=== PATIENT | female | born 1950 | race Caucasian/White ===

== ENCOUNTER 2017-07-04 11:39 | Inpatient (IN) | payer MEDICARE ==
[~2017-07-04] VITALS: Ht 157.5 cm; Wt 87.7 kg
--- NOTE | ~2017-07-04 | DS ---
[place], [place] DISCHARGE SUMMARY [id number] UN[facility] #: [id number] ROOM: 522 DOCTOR: KIA TURCIOS MD BIRTHDATE: [birth year] DOS: 07/07/2017 DISCHARGE DIAGNOSES: 1. Acute over chronic systolic type congestive heart failure with left ventricular ejection fraction of 25-30%. 2. Benign essential hypertension. 3. Chronic progressive anemia, needs to be followed as an outpatient. Hemoglobin was stable, may require blood transfusion after hemoglobin drops below 7. 4. Chronic kidney disease stage 3B. 5. Hyperkalemia associated with chronic kidney disease, resolved with diuresis. 6. Benign essential hypertension. HOSPITAL COURSE: The patient presented with increased shortness of breath and congestive heart failure along with hypoxemia. The patient was treated with diuresis and her breathing has improved. Acute exacerbation of COPD, treated with bronchodilators, oxygen, corticosteroids and her breathing has significantly improved. The patient has chronic underlying wheezing, which is going to stay and any time she gets a lung infection, she is prone to become hypoxemic and end up at the hospital again. The patient needs code status reevaluation and palliative care consult. Benign essential hypertension, with controlled blood pressures. Advanced disability and failure to thrive. Anemia of chronic disease. Old age, multiple medical problems, advanced disability. Moderate protein calorie malnutrition with albumin level of 2.6. Suboptimal prognosis, get palliative care consult with community hospice to follow the patient. BUN and creatinine prior to discharge of 55 and 1.8. Potassium level normal at 4.7 now. Hyperkalemia has resolved. Blood cultures were negative. DISCHARGE MANAGEMENT: Can give Diamox 250 mg 3 times a day, Brintellix 10 mg daily, Tradjenta 5 mg daily, lisinopril 2.5 mg daily, furosemide 60 mg daily, Colace 200 mg daily, Coreg 3.125 mg b.i.d., DuoNeb every 6 hours aerosol treatments, trazodone 50 mg at bedtime p.r.n. for sleep, Protonix 40 mg b.i.d. for a month and then once a day, magnesium oxide 400 mg b.i.d., with DuoNeb give Pulmicort 0.5 mg b.i.d. aerosol treatments, Tylenol 1000 mg every 8 hours as needed for pain and fever. [place], [place] DISCHARGE SUMMARY NAME: TAMMY JOHN UNIT #: [id number] ROOM: 522 DOCTOR: KIA TURCIOS MD BIRTHDATE: [birth year] KIA TURCIOS MD CM:DISCHARG [phone] KIA TURCIOS MD 07/07/17 1243 interface
--- NOTE | ~2017-07-04 | PR ---
[place], [place] PROGRESS NOTE NAME: TAMMY JOHN UNIT #: [id number] ROOM: 522 DOCTOR: KIA TURCIOS MD BIRTHDATE: [birth year] DOS: 07/06/2017 SUBJECTIVE: The patient continues to improve and her breathing is improving. OBJECTIVE: VITAL SIGNS: Blood pressure 133/70, heart rate 92 beats per minute, breathing 18 times per minute, temperature 98.5 degrees Fahrenheit. GENERAL APPEARANCE: The patient is alert and oriented x 3, in no visible distress, except for generalized weakness. HEENT AND NECK: Exam within normal limits. CARDIOVASCULAR SYSTEM: Heart rate is regular in rate and rhythm. S1 and S2 normally audible. LUNGS: Clear to auscultation. ABDOMEN: Soft, nontender. No obvious organomegaly. Bowel sounds are present. EXTREMITIES: Without significant cyanosis or edema. IMPRESSION: 1. Advanced severe failure to thrive with chronic kidney disease, moderate protein calorie malnutrition, anemia of chronic disease and a resident at [facility], hopefully will be discharged back after treatment tomorrow. 2. Acute over chronic systolic type congestive heart failure, improving with diuresis. 3. Serum electrolytes, BUN and creatinine being monitored. The patient has 55 and 1.8 BUN and creatinine, which are staying stable. 4. Benign essential hypertension, with controlled blood pressures. 5. Stage 4 chronic kidney disease. BUN and creatinine are being monitored. 6. Hyperkalemia, resolved with diuresis. KIA TURCIOS MD CM:PNTRANS [phone] KIA TURCIOS MD 07/06/172056 interface
--- NOTE | ~2017-07-04 | WRIGHTHP ---
[place], [place] PATIENT HISTORY AND PHYSICAL EXAM NAME: [id number] UNIT #: [id number] ROOM: 522 DOCTOR: KIA TURCIOS MD BIRTHDATE: [birth year] DOS: 07/04/2017 HISTORY OF PRESENT ILLNESS: The patient is a 67-year-old female with a past medical history of: 1. Systolic type CHF with 20-25% left ventricular ejection fraction. 2. History of CVA with left hemiparesis and disability. The patient resides at assisted. 3. Acute over chronic kidney disease. 4. COPD. The patient presented to the Emergency Department, sent over from [facility] for increased shortness of breath. The patient was found to be hypoxemic and short of breath and was recommended for admission and further management by Dr. Guerin. After admission, the patient is feeling much better. No GI or urinary symptoms. No more shortness of breath or wheezing. REVIEW OF SYSTEMS: LUNGS:. The patient had some increasing shortness of breath and hypoxemia at assisted. CARDIOVASCULAR: No chest pain. No palpitations. GASTROINTESTINAL: No nausea, vomiting, diarrhea or constipation. FAMILY HISTORY: Noncontributory. SOCIAL HISTORY: Denies smoking cigarettes, alcohol and drug abuse. HOME MEDICATION: DICTATION ENDS HERE KIA TURCIOS MD CM:HISPHYS:PATIENT HISTORY AND PHYSICAL EXAMINATION [phone] KIA TURCIOS MD 07/04/17 1824 interface
--- NOTE | ~2017-07-04 | WRIGHTHP ---
[place], [place] PATIENT HISTORY AND PHYSICAL EXAM [id number] UNIT #: [id number] ROOM: 522 DOCTOR: KIA TURCIOS MD BIRTHDATE: [birth year] DOS: 07/04/2017 HISTORY OF PRESENT ILLNESS: The patient is a 67-year-old female with a past medical history of: 1. COPD. 2. Advanced disability and adult failure to thrive, with suboptimal long-term prognosis. 3. Chronic systolic type CHF, 20-25% left ventricular ejection fraction. 4. History of CVA, with left hemiparesis and disability. 5. Chronic kidney disease stage 4. The patient was sent over from [facility] to the Emergency Department for increased shortness of breath and hypoxemia and she was found to be in acute congestive heart failure on chest x-ray and recommended for admission and further management. After admission, the patient is starting to feel better. No chest pain. No GI or urinary symptoms. REVIEW OF SYSTEMS: LUNGS: Increasing shortness of breath. No wheezing. GASTROINTESTINAL: No nausea, vomiting, diarrhea or constipation. CARDIOVASCULAR: No chest pains or palpitations. FAMILY HISTORY: Noncontributory. SOCIAL HISTORY: Denies smoking cigarettes, alcohol and drug abuse. MEDICATIONS: The patient takes Trintellix, Onglyza, lisinopril, furosemide, Colace, Coreg, DuoNeb, Protonix. ALLERGIES: No known drug allergies. PHYSICAL EXAMINATION: GENERAL: Alert, mostly oriented, very hard of hearing, poor historian, generalized weakness. HEENT AND NECK: Extraocular movements are intact. Sclerae are anicteric. Oral mucosa is moist and clean. No obvious facial weakness. Neck is supple without any lymphadenopathy. No thyromegaly. No JVD. No carotid arterial bruits. LUNGS: Clear to auscultation. No wheezing. No rhonchi. CARDIOVASCULAR SYSTEM: Heart rate is regular in rate and rhythm. S1 and S2 normally audible. No significant murmur or any other abnormal cardiac sounds. ABDOMEN: Soft, nontender. No obvious organomegaly. Bowel sounds are present. No obvious herniation. EXTREMITIES: Without significant cyanosis or edema. Warm to touch. CENTRAL NERVOUS SYSTEM: Alert and oriented x 3. Cranial nerves II-XII are intact. Speech is normal. The patient is able to move all extremities. Normal muscle strength. Deep tendon reflexes are equal on both sides. Plantars were downgoing. LABORATORY DATA: BUN and creatinine 52 and 1.2, potassium level of 5.4, magnesium 3.5. ProBNP elevated to 1200. Hemoglobin 7.3, chronically low white [place], [place] PATIENT HISTORY AND PHYSICAL EXAM NAME: TAMMY JOHN UNIT #: [id number] ROOM: 522 DOCTOR: KIA TURCIOS MD BIRTHDATE: [birth year] cell count of 4100. IMPRESSION: 1. The patient with severe failure to thrive, chronic kidney disease, moderate protein calorie malnutrition, chronic anemia, resident at [facility], maintains a full code status, qualifies for palliative care. 2. Acute over chronic systolic type congestive heart failure with hypoxemia. The patient's pulse ox has improved to 93-97% with low dose oxygen of 2-3 liters. I will continue to follow closely, review her chest x-ray, continue her home medications including Lasix and then adjust treatment as necessary. The patient requires very gentle treatment and not aggressive treatment at the hospital. I will recommend mainly treatment at [facility] and palliative nursing for her. 3. Benign essential hypertension, with controlled blood pressures. Blood pressure will be monitored and treated and she will be continued on lisinopril, Coreg as she was taking at [facility]. The patient's lungs are clear to auscultation on physical exam and she does not appear to be in any distress. 4. Chronic progressive anemia. I will check stool for Hemoccult blood and treat as necessary, follow her blood counts. Hemoglobin was low at 7.3. In the past, the patient apparently required blood transfusions. 5. Chronic kidney disease stage 4. Kidney function and serum electrolytes to be monitored. 6. Hyperkalemia. Potassium level of 5.4. I will repeat potassium level again tomorrow. KIA TURCIOS MD CM:HISPHYS:PATIENT HISTORY AND PHYSICAL EXAMINATION [phone] KIA TURCIOS MD 07/04/171848 interface
--- NOTE | ~2017-07-04 | PR ---
[place], [place] PROGRESS NOTE NAME: [facility] [id number] UNIT #: [id number] ROOM: 522 DOCTOR: KIA TURCIOS MD BIRTHDATE: [birth year] DOS: 07/05/2017 SUBJECTIVE: The patient with adult failure to thrive, chronic kidney disease, moderate protein calorie malnutrition, chronic anemia, with stable H and H. Her Long-term prognosis is guarded. Acute over chronic systolic type congestive heart failure is improving with diuresis. Benign essential hypertension. Blood pressure is being monitored, treated and controlled. Chronic progressive anemia, which is recurrent. Hemoglobin is stable at this time. If hemoglobin drops below 7, she will require blood transfusion. Chronic kidney disease stage 4. BUN and creatinine improving with diuresis. Hyperkalemia, resolved with diuresis. KIA TURCIOS MD CM:PNTRANS [phone] KIA TURCIOS MD 07/05/172206 interface
[~2017-07-04 11:39] MED LIST: ACCUNEB 0.0.63 MG/3 INH; ACETAMINOPHEN RC; ACETAMINOPHEN325 M2; ACETAMINOPHEN325 M2 PO; ACETAZOLAMIDE250 MG PO; ALBUTEROL SULF0.5 M1 IH; ALBUTEROL0.09 MG/A1 INH; ALDACTONE25 M1 PO; AMLODIPINE BESY10 MG PO; AMLODIPINE10 MG PO; ANTI-TUSS100 MG/5 M PO; ASMANEX220 MCG INH; ATOXIMETIN-B1 CAP PO; ATROVENT I0.5 MG/2.1 INH; AUGMENTIN 875-875 MG PO; AZASAN50 MG; B-121000 MCG PO; B121000 MCG/1 IM; BACTRIM DS 8001 TA1 PO; BACTROBAN2% TP; BENTYL20 MG PO; BRIN20TA PO; CALCI-MIX500 MG PO; CALCIUM 600600 M2 PO; CALMOSEPTINE O3.5 GM TP; CEFUROXIME AXE250 MG PO; CELEXA10 MG; CELEXA20 MG PO; CENTRUM1 TA1 PO; CIPRO500 MG PO; COREG3.125 MG PO; COUMADIN2.5 M1 PO; DIAMOX SEQUELS500 MG PO; DIFLUCAN100 MG PO; DOC-Q-LACE100 MG PO; DUONEB 3 MG/3 ML3 M1; DUONEB 3 MG/3 ML3 M1 INH; DUONEB 3 MG/3 ML3 M1 NEB; DUONEB 3ML 3 MG/3 ML INH; DURAGESIC 25 M25 MCG; DURAGESIC 50 M50 MCG INTRADERM; DURAGESIC25 MCG/HR TD; FUROSEMIDE80 MG PO; GABAPENTIN100 MG PO; GABAPENTIN300 MG PO; HEPARIN5000 UNIT/ SC; HUMALOG100 UNIT/2 SQ; HYDROCODONE BIT1 T11 PO; HYDROCODONE BIT1 T12 PO; HYDROCODONE/APA1 T15 PO; IMURAN50 MG PO; JANTOVEN4 MG PO; K-DUR 1010 MEQ PO; KLOR-CON 1010 MEQ PO; KLOR-CON M2020 MEQ PO; LANTUS100 U/ML SC; LASIX40 MG PO; LASIX80 MG; LASIX80 MG PO; LEVEMIR10 ML SC; LEVOFLOXACIN500 MG PO; LIQUACEL 30 ML30 M1 PO; LISINOPRIL2.5 MG PO; LISINOPRIL40 MG PO; LOPRESSOR50 MG PO; LOVENOX30 MG/0.3 SC; Lasix80 MG PO; MACRODANTIN100 MG PO; MAG OX PO; MAGOX 400400 MG PO; MEDROL DOSEPAK4 MG PO; MEGACE40 MG/ML PO; MERREM IV1 GM IV; METFORMIN500 MG PO; MILK OF MA400 MG/5 M PO; Metolazone5 MG PO; NITROFURANTOIN100 M9; NOVOLIN 70/30 PE3 ML; NOVOLIN R100 U/ML; NOVOLIN R100 U/ML SC; NOVOLOG10 ML IV; NYSTATIN 1 ML1 ML T; NYSTATIN CREAM15 GM PO; NYSTATIN POWDER T; OMEPRAZOLE DR20 MG PO; ONDANSETRON4 M1 IM; ORASONE10 MG PO; OYST CAL D PO; OYSTER SHELL CA1 T10 PO; PAIN & FEVER R325 MG PO; PREDNISONE5 MG PO; PRILOSEC20 M1 PO; PRILOSEC20 M2 PO; PRINIVIL20 MG PO; PROTONIX PO; PROTONIX40 MG PO; PULMICORT RESP0.5 MG INH; PULMICORT0.5 MG/2 M IH; QUALITY CHOICE200 M1 PO; REMERON15 MG PO; RESOURCE; RESOURCE 2.0 2237 ML PO; RESOURCE PO; ROCEPHIN1 GM IM; SENNA PLUS 50 M1 TA1 PO; SENNA PLUS 50 M1 TA2 PO; SODIUM CHLORIDE IH; SODIUM CHLORIDE INH; THERA M PO; THERA-M W/MINER1 TAB PO; TYLENOL325 MG R; VICODIN 5/500 505 MG; VITAMIN B COMPLEX IM; Vicodin 5/500 505 MG; ZESTRIL20 MG PO; ZESTRIL40 MG PO; ZOFRAN ODT4 MG SL; ZOFRAN ODT8 MG PO; ZOFRAN4 MG PO; Zofran4 MG PO; [UNRECOGNIZED DRUG - OTHER] PO; [UNRECOGNIZED DRUG - OTHER] PO; [UNRECOGNIZED DRUG - OTHER] PO
[2017-07-04 11:45] VITALS: BP 146/78
[2017-07-04 12:04] LABS: BASO % 0.5 % (0.0-1.0); EOS # 0.3 10*3/uL (0.0-0.4); EOS % 6.8 % (1.0-4.0); HEMATOCRIT 26.6 % (37.0-47.0); HEMOGLOBIN 7.3 g/dl (12.0-16.0); LYMPH % 24.2 % (27.0-41.0); MEAN CORPUSCULAR HGB 25.3 pg (27.0-31.0); MEAN CORPUSCULAR HGB CONC 27.4 g/dl (33.0-37.0); MEAN PLATELET VOLUME 9.3 fl (9.6-12.3); MONO # 0.4 10*3/uL (0.1-1.0); MONO % 9.3 % (3.0-9.0); NEUT # 2.4 10*3/uL (2.3-7.9); NEUT % 58.2 % (47.0-73.0); PLATELET COUNT AUTOMATED 147 10*3/uL (130-400); RED BLOOD COUNT 2.89 10*6/uL (4.10-5.10); RED CELL DISTRI WIDTH 15.7 % (0-14.5); WHITE BLOOD COUNT 4.1 10*3/uL (4.8-10.8)
[2017-07-04 12:13] LABS: ACT PARTIAL THROMBO TIME 23.2 SECONDS (20.8-31.5); INTERNATIONAL NORM RATIO 0.9 (2.0-3.5)
[2017-07-04 12:20] LABS: ALBUMIN 2.6 gm/dl (3.1-4.5); ALKALINE PHOSPHATASE 68 U/L (45-117); BUN 52 mg/dl (7-24); CHLORIDE 98 mmol/L (98-107); CREATININE 1.97 mg/dL (0.55-1.02); LIPASE 241 U/L (73-393); POTASSIUM 5.4 mmol/L (3.5-5.1); SGOT/AST 6 IU/L (3-35); SGPT/ALT 9 U/L (12-78); SODIUM 143 mmol/L (136-145); TOTAL PROTEIN 6.4 gm/dL (6.4-8.2)
[2017-07-04 12:23] LABS: TROPONIN I < 0.015 ng/ml (<0.045)
--- NOTE | 2017-07-04 13:45 | NUR ---
A 67, admitted to 5E, under the services of Dr. TAM TIDWELL,KIA Fields with a diagnosis of ACUTE RESPIRATORY FAILURE WITH HYPOXIA, COPD EAXCERBATION, ANEMIA. Chief complaint is SOB. Patient arrived via bed from ER. Monitor applied. Initial assessment completed. Vital signs taken and recorded. DR. TAM TIDWELL,KIA Fields notified of admission to the unit. Orders received. See assessment for past medical history, medications and allergies. Patient and/or family oriented to unit. [facility] visitation policy reviewed. Clothing/patient valuable form completed. ASSESSMENT COMPLETE. SKIN INTACT WITH NO WOUNDS. FLU AND PNEUMONIA VACCINATIONS CURRENT. HOME MEDICATIONS VERIFIED WITH LIST FROM [employer]. [employer] BRANDT
[2017-07-04 14:21] VITALS: BP 153/68
[2017-07-04] MEDS ORDERED: BRIN10TA PO (14:47)
[2017-07-04] MEDS ORDERED: CALMOSEPTINE O3.5 GM T (14:55)
[2017-07-04] MEDS ORDERED: ONGLYZA5 MG PO (15:07)
[2017-07-04] MEDS ORDERED: ROBITUSSIN DM3840 ML PO (15:14)
[2017-07-04] MEDS ORDERED: LEVAQUIN500 M2 PO (15:18)
[2017-07-04] MEDS ORDERED: CEFTRIAXONE1 GM IM (15:20)
[2017-07-04 16:00] VITALS: BP 143/58
--- NOTE | 2017-07-04 17:52 | NUR ---
CALLED [facility] CONSULT PER DR OROPEZA. WAITING HIGH LIFT OPERATOR BACK
[2017-07-04 20:00] VITALS: BP 118/68
--- NOTE | 2017-07-04 20:00 | NUR ---
ASSUMED CARE OF PATIENT. ASSESSMENT COMPLETE. DENIES FURTHER NEEDS AT THIS TIME. CALL LIGHT IN REACH. WILL CONTINUE TO MONITOR.
--- NOTE | 2017-07-04 20:22 | NUR ---
PT REQUESTING A SLEEPING PILL. CALLED AND SPOKE TO DR TURCIOS. ORDER RECEIVED.
[2017-07-05] VITALS: BP 130/63
--- NOTE | 2017-07-05 02:00 | NUR ---
SLEEPING. RESP EASY AND NONLABORED ON 2L NC. NO DISTRESS NOTED. CM INTACT. CALL LIGHT IN REACH. BED ALARM ON. WILL CONTINUE TO MONITOR.
[2017-07-05 06:21] LABS: BASO % 0.4 % (0.0-1.0); EOS # 0.3 10*3/uL (0.0-0.4); EOS % 6.8 % (1.0-4.0); HEMATOCRIT 25.6 % (37.0-47.0); HEMOGLOBIN 7.2 g/dl (12.0-16.0); LYMPH # 0.9 10*3/uL (1.3-4.4); LYMPH % 19.6 % (27.0-41.0); MEAN CELL VOLUME 89.8 fl (81.0-99.0); MEAN CORPUSCULAR HGB 25.3 pg (27.0-31.0); MEAN CORPUSCULAR HGB CONC 28.1 g/dl (33.0-37.0); MEAN PLATELET VOLUME 9.9 fl (9.6-12.3); MONO # 0.4 10*3/uL (0.1-1.0); MONO % 8.6 % (3.0-9.0); NEUT # 2.9 10*3/uL (2.3-7.9); NEUT % 63.5 % (47.0-73.0); PLATELET COUNT AUTOMATED 156 10*3/uL (130-400); RED BLOOD COUNT 2.85 10*6/uL (4.10-5.10); RED CELL DISTRI WIDTH 15.8 % (0-14.5); WHITE BLOOD COUNT 4.5 10*3/uL (4.8-10.8)
[2017-07-05 06:33] LABS: POTASSIUM 4.9 mmol/L (3.5-5.1)
[2017-07-05 06:39] LABS: CREATININE 1.82 mg/dL (0.55-1.02)
--- NOTE | 2017-07-05 07:04 | NUR ---
DR VERMA MADE AWARE OF CO2 44, NO ORDERS RECEIVED
[2017-07-05 08:00] VITALS: BP 150/84
--- NOTE | 2017-07-05 09:38 | NUR ---
MIXING PLACE SUPERVISOR VS. PT IS LTC AT [facility].
[2017-07-05 12:00] VITALS: BP 156/66
--- NOTE | 2017-07-05 12:11 | NUR ---
Patient is ltc at the [facility] and can return when medically stable for discharge.
[2017-07-05 16:00] VITALS: BP 158/81
[2017-07-05 20:00] VITALS: BP 164/71
--- NOTE | 2017-07-05 20:00 | NUR ---
AWAKE & ALERT RESTING IN BED. HEP LOCK RIGHT HAND; ASYMPTOMATIC. 02 INTACT; PULSE OX 96% ON 2 LITERS. NO DISTRESS NOTED. CALL LIGHT WITHIN REACH.
--- NOTE | 2017-07-05 22:00 | NUR ---
TOOK PO MEDICATION WITH APPLESAUCE WITHOUT DIFFICULTY. VOICES NO C/O. CALL LIGHT WITHIN REACH.
[2017-07-06] VITALS: BP 141/75
--- NOTE | 2017-07-06 | NUR ---
ASSUMED CARE OF PATIENT. ASSESSMENT COMPLETE. RESTING IN BED. BED ALARM ON. CALL LIGHT IN REACH. WILL CONTINUE TO MONITOR.
--- NOTE | 2017-07-06 02:00 | NUR ---
SLEEPING. RESP EASY AND NONLABORED ON 2L NC. NO DISTRESS NOTED. CALL LIGHT IN REACH. WILL CONTINUE TO MONITOR.
[2017-07-06 07:20] LABS: CREATININE 1.82 mg/dL (0.55-1.02); POTASSIUM 4.7 mmol/L (3.5-5.1)
--- NOTE | 2017-07-06 07:26 | NUR ---
LAB CALLED CRITICAL CO2 43. CALLED AND MADE DR VERMA AWARE. NO ORDERS RECEIVED
--- NOTE | 2017-07-06 07:30 | NUR ---
PT VITALS ARE STABLE. PT. HAS SPO2: OF 94% ON 2L N/C. HEART SOUNDS ARE IRREGULAR. LUNG SOUNDS: RHONCI THROUGHOUT WITH EXP. WHEEZE. ABDOMEN IS SOFT NON-DISTENDED. PT HAS POSITIVE TRIMMER MACHINE OPERATOR BILATERALLY WITH RIGHT WEAKER SIDE. JOHN. POSITIVE PEDAL PULSES. CAP. REFILL <3 SEC. SKIN TURGOR IS GOOD. SKIN IS WARM AND DRY AND INTACT. PT. HAS TRACE EDEMA IN FEET. FOOT DROP PRESENT, FETT PROPPED UP FOR INTERVENTION. IV SITE DRY AND INTACT. NO SIGNS OF INFECTION. PT IS RESTING COMFORTABLY AND HAS NO COMPLAINTS AT THIS TIME. WILL CONTINUE TO ASSESS. JENNIFER SALAS [facility]
[2017-07-06 08:00] VITALS: BP 150/72
--- NOTE | 2017-07-06 08:10 | NUR ---
PT INCONTINENT OF URINE AND CHANGED. PT RESTING COMFORTABLE ASLEEP. CALL LIGHT IN PLACE. [facility]IFER SALAS [facility]
--- NOTE | 2017-07-06 11:00 | NUR ---
STOOL SPECIMEN COLLECTED AND SENT TO LAB. PT IS RESTING COMFORTABLY ASLEEP. NO COMPLAINTS AT THIS TIME. WILL CONTINUE TO ASSESS. JENNIFER SALAS [facility].
--- NOTE | 2017-07-06 11:56 | NUR ---
PHYSICAL THERAPY Respectfully declines PT this date. PAtient is retirement care. Thank you for this referral. Kassi Anguiano,PT
[2017-07-06 12:00] VITALS: BP 132/68
--- NOTE | 2017-07-06 12:12 | NUR ---
VS ARE STABLE.PT IS RESTING COMFORTABLY. NO COMPLAINTS AT THIS TIME. WILL CONTINUE TO ASSESS. JENNIFER SALAS [facility].
--- NOTE | 2017-07-06 13:09 | NUR ---
PT CHANGED. SKIN IS DRY AND INTACT. POSITIONED CHANGED AND HAS NO COMPLAINTS AT THIS TIME. PT IS RESTING COMFORTABLY EATING LUNCH. WILL CONTINUE TO ASSESS. [facility] SAL[facility]
[2017-07-06 16:00] VITALS: BP 133/70
[2017-07-06 20:00] VITALS: BP 133/59
--- NOTE | 2017-07-06 20:26 | NUR ---
1951 RESTING IN BED WITH HOB ELEVATED. SIDE RAILS UP X'S 2. CALL LIGHT IN REACH. NO C/O'S VOICED. NO DISTRESS NOTED. ADULT DIAPER INTACT. HEP LOCK INTACT.
--- NOTE | 2017-07-06 22:12 | NUR ---
TOOK PO MEDS WELL IN APPLESAUCE. RESTING IN BED WATCHING TV. CONDITION GUARDED.
[2017-07-07] VITALS: BP 138/73
--- NOTE | 2017-07-07 07:30 | NUR ---
PT. VITALS ARE STABLE. JOHN. SPO2: 95% O2 2L N/C. HEART SOUNDS ARE NORMAL. RHOCI HEARD IN LOWER LOBES WITH EXP. WHEEZE, OTHERWISE CLEAR. ABDOMEN IS SOFT NON-DISTENDED WITH BS X4. TYRE RETREADER ARE POSITIVE WITH RIGHT WEAKER SIDE D/T OLD CVA. TRACE EDEMA IN RIGHT FT. SIN TURGOR IS GOOD. CAPILLARY REFILL <3SEC. SKIN IS WARM, DRY, PINK, AND INTACT. PT. CHANGED AT TIME OF ASSESSMENT AND REPOSITIONED FOR COMFORT. NO COMPLAINTS AT THIS TIME. PLEASANT AND COOPERATIVE. WILL CONTINUE TO ASSESS. JENNIFER SALAS [facility]
[2017-07-07 08:00] VITALS: BP 138/70
--- NOTE | 2017-07-07 08:00 | NUR ---
ASSUMED CARE OF PATIENT. PATIENT IS RESTING IN HER BED. PATIENT HAS RIGHT SIDED PARALYSIS FROM HX OF CVA, PLEASANT DEMEANOR.
[2017-07-07 08:06] LABS: CREATININE 1.98 mg/dL (0.55-1.02); POTASSIUM 4.7 mmol/L (3.5-5.1)
--- NOTE | 2017-07-07 09:00 | NUR ---
RECEIVED CRITICAL LAB VALUE, CO2 OF 43. CALLED DR TURCIOS TO MAKE HIM AWARE, RECEIVED AN ORDER FOR DIAMOX 250MG TID.
--- NOTE | 2017-07-07 09:24 | NUR ---
PHYSICAL THERAPY PAtient sleeping at this time. Will attempt later this date. PAtient requested no PT yesterday and is [facility] intermediate care. Thank you for this referral. Kassi Anguiano,PT
--- NOTE | 2017-07-07 09:36 | NUR ---
PT TOOK MEDS IN APPLESAUCE. TOLERATED WELL. PT IS NOT HUNGRY AND REFUSED BREAKFAST. RESTING COMFORTABLY. NO COMPLAINTS AT THIS TIME. WILL CONTINUE TO ASSESS. JENNIFER SALAS [facility].
--- NOTE | 2017-07-07 10:37 | NUR ---
Loan RYAN WAS IN. PT WILL BE DISCHARGED TODAY. HAPPY TO GO HOME AND HAS BEEN BATHED AND IS RESTING COMFORTABLY. WILL CONTINUE TO ASSESS. [facility]
--- NOTE | 2017-07-07 10:42 | NUR ---
PHYSICAL THERAPY Per d/c planning meeeting, patient return to [facility] care facilty this date. Kassi Anguiano,PT
[2017-07-07 12:00] VITALS: BP 148/80
--- NOTE | 2017-07-07 12:07 | NUR ---
PT IS RESTING COMFORTABLY AND IS EATING LUNCH. NO COMPLAINTS AT THIS TIME. WILL CONTINUE TO ASSESS. [facility] SAL[facility]
--- NOTE | 2017-07-07 13:13 | NUR ---
PT IS RESTING COMFORTABLY. NO COMPLAINTS AT THIS TIME AND IS AWAITING ORDER FOR DISCHARGE. ROOM IS CLEANED UP. WATER AND CALL LIGHT IS IN REACH. WILL CONTINUE TO ASSESS. [facility] SAL[facility]
--- NOTE | 2017-07-07 13:54 | NUR ---
PT IS BEING PREPARED FOR DISCHARGE. HEPLOCK IN RIGHT HAND REMOVED. PT CHANGED AND DRESSED FOR TRANSPORT BACK TO [facility]. PT IS PLEASANT AND COOPERATIVE AWAITING DISCHARGE. [facility]ER SAL[facility]
--- NOTE | 2017-07-07 14:07 | NUR ---
Patient is discharged back to the [facility], transportation scheduled for 5 PM with [facility] CT and nursing notified.
--- NOTE | 2017-07-07 15:38 | NUR ---
PT RECEIVED TYLENOL FOR PAIN RATED 4/10.
[2017-07-07 16:00] VITALS: BP 118/56
--- NOTE | 2017-07-07 16:20 | NUR ---
PT STATES PAIN IS RELIEVED.
--- NOTE | 2017-07-07 17:32 | NUR ---
Discharge instructions reviewed with patient/family. Patient receptive and verbalizes understanding. Follow-up care arranged. Written instructions given to patient/family. PT TAKEN FROM FLOOR BY EMS. IN STABLE CONDITION. NO CONCERNS. GAMA MINOR
== END 2017-07-07 17:32 | disposition home or self-care (01) | DRG 291 ==
LOC: ED 11:39 → 5E 13:27 → EDHOLD 13:27 → 5E 13:36
PROVIDERS: Emergency Medicine; ADMIT Internal Medicine
DX: I13.0 Hypertensive heart and chronic kidney disease with heart failure and stage 1 through stage 4 chronic kidney disease, or unspecified chronic kidney disease (principal); I50.23 Acute on chronic systolic (congestive) heart failure; J96.21 Acute and chronic respiratory failure with hypoxia; E44.0 Moderate protein-calorie malnutrition; J44.1 Chronic obstructive pulmonary disease with (acute) exacerbation; N18.4 Chronic kidney disease, stage 4 (severe); I69.354 Hemiplegia and hemiparesis following cerebral infarction affecting left non-dominant side; E11.22 Type 2 diabetes mellitus with diabetic chronic kidney disease; D63.8 Anemia in other chronic diseases classified elsewhere; R62.7 Adult failure to thrive; E87.5 Hyperkalemia; Z82.49 Family history of ischemic heart disease and other diseases of the circulatory system; Z79.899 Other long term (current) drug therapy; Z79.4 Long term (current) use of insulin; Z87.01 Personal history of pneumonia (recurrent); Z87.440 Personal history of urinary (tract) infections; Z86.19 Personal history of other infectious and parasitic diseases; Z68.33 Body mass index [BMI] 33.0-33.9, adult

== ENCOUNTER 2017-08-18 12:30 | Inpatient (IN) | payer MEDICARE ==
[~2017-08-18] VITALS: Ht 170.2 cm; Wt 84.0 kg
--- NOTE | ~2017-08-18 | WRIGHTHP ---
[place], [place] PATIENT HISTORY AND PHYSICAL EXAM NAME: TAMMY JOHN [facility] #: [id number] UNIT #: [id number] ROOM: 505 DOCTOR: ARTIS VERMA MD BIRTHDATE: [birth year] DOS: 08/18/2017 HISTORY OF PRESENT ILLNESS: The patient is very well known to us, 67 years old. The patient states that she had some swelling in the right thigh and so she was sent out to the Emergency Room. She was found to have some mild congestive heart failure on x-rays in the Emergency Room, and she was admitted. She denies having any chest pains, palpitations, does not have any fever or chills. The patient states that she feels fine and is not having any new issues. Venous Doppler was done in the ER and did not show any evidence of DVT. PAST MEDICAL HISTORY: Significant for: 1. Dilated cardiomyopathy with ejection fraction 25-30%. 2. Benign hypertension. 3. Chronic kidney disease stage III. 4. History of a cerebrovascular accident with right-sided hemiparesis. 5. Chronic obstructive pulmonary disease with chronic respiratory failure. 6. Chronic hypercapnia. MEDICATIONS: She is currently on are Tylenol, calcium, Coreg, Colace, Lasix, Robitussin, lisinopril, mag oxide, Protonix, Onglyza, Brintellix, oxygen and breathing treatments p.r.n. SOCIAL HISTORY: Nonsmoker, does not use any alcohol. Lives at [facility]. PHYSICAL EXAMINATION: GENERAL: She is awake and alert and oriented. VITAL SIGNS: Graphic trend shows a pressure 102/47, pulse of 88, respirations 19, temperature 98.2. LUNGS: Clear. HEART: Regular. ABDOMEN: Soft. EXTREMITIES: Without any edema. The right leg and thigh did not show any major swelling this morning. LABORATORY DATA: WBC count is 5.9, hemoglobin 8.2, hematocrit 29.3, platelets 145. BMP: Glucose 176, BUN 39, creatinine 1.77, GFR 28. Troponin was negative. Venous Doppler was negative. The pH 7.3, pCO2 of 80, pO2 114. ASSESSMENT AND PLAN: 1. The patient was brought in with complaints of mild shortness of breath with some mild systolic congestive heart failure noted on the chest x-ray. Lasix IV has been ordered. Continue rest of the cardiac medications. Echocardiogram has been ordered along with a Cardiology consultation. 2. Chronic obstructive pulmonary disease with chronic hypercapnia. She does not appear acidotic, even though the pCO2 was high, so we will avoid BiPAP in this patient. 3. Failure to thrive from history of a CVA. She would like to have a discontinued, before we do that speech therapy will be consulted. 4. Benign hypertension. Continue home meds. [place], [place] PATIENT HISTORY AND PHYSICAL EXAM NAME: TAMMY JOHN UNIT #: [id number] ROOM: [facility] DOCTOR: ARTIS VERMA MD BIRTHDATE: [birth year] 5. Type 2 diabetes mellitus, insulin-dependent. Blood sugars to be checked twice daily, coverage scale ordered. ARTIS VERMA MD CM:HISPHYS:PATIENT HISTORY AND PHYSICAL EXAMINATION [id number] ARTIS VERMA MD 08/19/17 0858 interface
--- NOTE | ~2017-08-18 | CON ---
[place], [place] REPORT OF CONSULTATION NAME: TAMMY JOHN UNIT #: [id number] ROOM: 505 DOCTOR: REGINA HIDALGO MD BIRTHDATE: [birth year] DOS: 08/19/2017 HISTORY OF PRESENT ILLNESS: The patient is a 67-year-old female apparently with history of cardiomyopathy. Last echocardiogram a year ago. Ejection fraction was 25-30%. The patient is an extremely poor historian. The patient got admitted with increasing shortness of breath. The patient has a history of peripheral vascular disease, CVA, residual right-sided weakness, diabetes, COPD, chronic respiratory failure, failure to thrive, hypertension, and diabetes with cardiomyopathy. I am not able to get much history from the patient. The patient complains of leg pains, but Dopplers were negative. She has a long-term oxygen dependency. The patient came from the Emergency Room for evaluation of possible cellulitis. PAST MEDICAL HISTORY: Significant for cardiomyopathy, respiratory failure, COPD, history of GI bleed, history of renal insufficiency, respiratory failure, septicemia. PAST SURGICAL HISTORY: Previous bronchoscopy. HOME MEDICATIONS: Include Lasix, multivitamins, magnesium, guaifenesin, pantoprazole, ondansetron, and acetaminophen. ALLERGIES: None. SOCIAL HISTORY: Denies any alcohol abuse or tobacco abuse. FAMILY HISTORY: Positive for hypertension. REVIEW OF SYSTEMS: Limited because the patient is somewhat confused. History of cerebrovascular accident, but denies any chest discomfort. Does have some shortness of breath. Nausea issues. The patient has some slurred speech. PHYSICAL EXAMINATION: VITAL SIGNS: Blood pressure is 1102/47, pulse is 88, in sinus rhythm. NECK: Supple, elevated JVD. LUNGS: Diminished breath sounds. HEART: Sounds are regular. NEUROLOGIC: Difficult to assess as she has some confusion, but has some slurred speech. EXTREMITIES: Without edema. LABORATORY DATA: Hemoglobin 8.2, hematocrit 29.3, and platelet count 145. BUN 39 and creatinine is 1.7. Venous Dopplers are negative. PCO2 is 80 and pO2 of 114. IMPRESSION: The patient with hypercapnic respiratory failure with significant elevated pCO2, cardiomyopathy, probable mild congestive heart failure, systolic noted in the chest x-ray, failure to thrive from the old cerebrovascular accident, benign hypertension, diabetes mellitus, renal insufficiency. [place], [place] REPORT OF CONSULTATION NAME: TAMMY JOHN UNIT #: [id number] ROOM: 505 DOCTOR: REGINA HIDALGO MD BIRTHDATE: [birth year] RECOMMENDATIONS: 1. Agree with the present management. 2. Add lisinopril and Coreg to the current regimen. We will review the echocardiogram. Continue IV diuretics, strict I's and O's and I will follow up with you. Thank you for this interesting consultation. REGINA HIDALGO MD CM:CONSTR:REPORT OF CONSULTATION 1544 08/19/17 1936 interface
--- NOTE | ~2017-08-18 | PR ---
[place], [place] PROGRESS NOTE NAME: TAMMY JOHN UNIT #: [id number] ROOM: 505 DOCTOR: ARTIS VERMA MD BIRTHDATE: [birth year] DOS: 08/20/2017 SUBJECTIVE: The patient is doing well without any complaints. OBJECTIVE: VITAL SIGNS: Graphic trend shows a pressure 128/70, pulse of 96, respirations 18, temperature 98.7. LUNGS: Clear. HEART: Regular. ABDOMEN: Obese, soft. EXTREMITIES: Decreased edema. The patient did complain of some pain in the right heel, but examination was unremarkable. ASSESSMENT AND PLAN: 1. This is a 67-year-old patient with severe cardiomyopathy who presents with mild diastolic congestive heart failure, which is resolved clinically. The plan is to discharge her to home. 2. Urinary tract infection with moderate gram-negative bacteria. IV antibiotics will be ordered upon discharge. We will need to discuss with hospice options with this patient's family. ARTIS VERMA MD CM:[id number] ARTIS VERMA MD 08/20/17 1744 interface
--- NOTE | ~2017-08-18 | DS ---
[place], [place] DISCHARGE SUMMARY NAME: TAMMY JOHN [facility] #: [id number] UNIT #: [id number] ROOM: 505 DOCTOR: ARTIS VERMA MD BIRTHDATE: [birth year] DOS: 08/20/2017 DIAGNOSES: 1. Acute systolic congestive heart failure. 2. Cardiomyopathy, ejection fraction 20%. 3. Urinary tract infection with gram-negative bacteria 50,000 colonies. 4. Right leg swelling, no evidence of DVT. 4. Type 2 diabetes mellitus, insulin-dependent. 5. Adult failure to thrive. 6. Chronic obstructive pulmonary disease, chronic hypercapnic respiratory failure. 7. Right-sided hemiparesis. Please consider hospice for this patient because of the multiple medical problems, especially the cardiomyopathy. DISCHARGE MEDICATIONS: Breathing treatments, DuoNeb q. 8, Coreg 3.125 twice a day, lisinopril 2.5 mg daily, Tylenol 650 q. 6 p.r.n., Brintellix 20 daily, Os-Jairon 500 b.i.d., Lasix 60 mg daily, Robitussin q. 4 p.r.n. for cough, Pulmicort 0.5 twice a day for 14 days in the breathing treatments, mag oxide 400 mg twice daily, Colace 100 mg daily. Protonix 40 daily, Onglyza 5 mg daily, insulin sliding scale, nystatin for local application. This patient is also being placed on Ceftin 250 twice daily for 5 days. HOSPITAL COURSE: The patient is 67 years old, was brought in with complaints of right leg swelling and pain. After evaluation in the ER, she was diagnosed with systolic CHF, was admitted. After admission, the patient was placed on IV diuretics, breathing treatments, complained of aches and pain for which she is getting Tylenol. Rich catheter was placed in the ER, which will be removed today before discharge. Complained of right heel pain as well as right leg pain. Venous Doppler showed no evidence of any DVT. Chest x-ray showed mild pulmonary venous congestion. The patient is stable and improved on the IV diuretics. The plan is to discharge and follow up as an outpatient. The patient has multiple medical problems and overall prognosis remains poor and guarded would be good for this patient. Family to consider comfort care, code status as well as hospice consideration. DIET: ADA 1800, blood sugars to be checked daily. [place], [place] DISCHARGE SUMMARY NAME: TAMMY JOHN UNIT #: [id number] ROOM: 505 DOCTOR: ARTIS VERMA MD BIRTHDATE: [birth year] ARTIS VERMA MD CM:DISCHURIAH [id number] ARTIS VERMA MD 08/20/17 0921 interface
[2017-08-18 12:30] VITALS: BP 158/86
[~2017-08-18 12:30] MED LIST changes: +BRIN10TA PO; +CALMOSEPTINE O3.5 GM T; +CEFTRIAXONE1 GM IM; +LEVAQUIN500 M2 PO; +ONGLYZA5 MG PO; +ROBITUSSIN DM3840 ML PO
[2017-08-18 12:57] LABS: BASO % 0.5 % (0.0-1.0); EOS # 0.3 10*3/uL (0.0-0.4); EOS % 5.6 % (1.0-4.0); HEMATOCRIT 29.3 % (37.0-47.0); HEMOGLOBIN 8.2 g/dl (12.0-16.0); LYMPH # 1.2 10*3/uL (1.3-4.4); LYMPH % 20.7 % (27.0-41.0); MEAN CELL VOLUME 86.7 fl (81.0-99.0); MEAN CORPUSCULAR HGB 24.3 pg (27.0-31.0); MEAN PLATELET VOLUME 8.6 fl (9.6-12.3); MONO # 0.5 10*3/uL (0.1-1.0); MONO % 7.9 % (3.0-9.0); NEUT # 3.8 10*3/uL (2.3-7.9); NEUT % 64.4 % (47.0-73.0); PLATELET COUNT AUTOMATED 145 10*3/uL (130-400); RED BLOOD COUNT 3.38 10*6/uL (4.10-5.10); RED CELL DISTRI WIDTH 16.8 % (0-14.5); WHITE BLOOD COUNT 5.9 10*3/uL (4.8-10.8)
[2017-08-18 13:09] LABS: CREATININE 1.77 mg/dL (0.55-1.02); POTASSIUM 4.5 mmol/L (3.5-5.1)
[2017-08-18 13:30] VITALS: BP 132/77
[2017-08-18 14:29] LABS: ABG BASE EXCESS 14.8 mmol/L (-2.0-2.0); ABG HCO3 42.4 mmol/l (22-26); ABG O2 SATURATION 97.9 % (95-97); ARTERIAL BLOOD GAS PH 7.344 (7.35-7.45)
[2017-08-18 14:32] LABS: ARTERIAL BLOOD GAS PCO2 80.1 mmHg (35-45)
[2017-08-18 15:27] LABS: BILIRUBIN NEGATIVE (NEGATIVE); BLOOD 2+ (NEGATIVE); CLARITY SL CLOUDY (CLEAR); COLOR YELLOW (YELLOW); GLUCOSE NEGATIVE (NEGATIVE); KETONE NEGATIVE (NEGATIVE); LEUKO ESTERASE 3+ (NEGATIVE); NITRITE NEGATIVE (NEGATIVE); SPECIFIC GRAVITY <= 1.005 (1.005-1.030); UROBILINOGEN 0.2 E.U./dl (0.2-1.0)
[2017-08-18 15:29] VITALS: BP 134/57
[2017-08-18 15:33] LABS: BACTERIA 1+; EPITHELIAL CELLS 0-2; RBC 16-20 rbc/hpf (0-2); WBC TNTC wbc/hpf (0-5)
[2017-08-18 15:51] VITALS: BP 128/87; BP 134/57
[2017-08-18 16:00] VITALS: BP 130/60
[2017-08-18 20:00] VITALS: BP 105/50
[2017-08-19] VITALS: BP 102/47
[2017-08-19 05:13] LABS: ABG BASE EXCESS 16.1 mmol/L (-2.0-2.0); ABG HCO3 43.2 mmol/l (22-26); ABG O2 SATURATION 97.1 % (95-97); ARTERIAL BLOOD GAS PH 7.371 (7.35-7.45); ARTERIAL BLOOD GAS PO2 87.4 mmHg (80-90)
[2017-08-19 05:28] LABS: ARTERIAL BLOOD GAS PCO2 76.2 mmHg (35-45)
[2017-08-19 08:00] VITALS: BP 134/80
[2017-08-19 12:00] VITALS: BP 132/82
[2017-08-19 16:55] VITALS: BP 133/58
[2017-08-19 20:00] VITALS: BP 155/65
[2017-08-20] VITALS: BP 145/66
[2017-08-20 08:00] VITALS: BP 116/61
[2017-08-20 08:16] VITALS: BP 128/70
[2017-08-20] MEDS ORDERED: PULMICORT RESP0.5 MG NEB (08:38)
== END 2017-08-20 11:00 | disposition home or self-care (01) | DRG 291 ==
LOC: ED 12:30 → 5E 14:52 → EDHOLD 14:52 → 5E 14:55
PROVIDERS: Emergency Medicine; Internal Medicine
DX: I13.0 Hypertensive heart and chronic kidney disease with heart failure and stage 1 through stage 4 chronic kidney disease, or unspecified chronic kidney disease (principal); I50.41 Acute combined systolic (congestive) and diastolic (congestive) heart failure; J96.22 Acute and chronic respiratory failure with hypercapnia; E87.4 Mixed disorder of acid-base balance; N39.0 Urinary tract infection, site not specified; I69.951 Hemiplegia and hemiparesis following unspecified cerebrovascular disease affecting right dominant side; I42.0 Dilated cardiomyopathy; I25.10 Atherosclerotic heart disease of native coronary artery without angina pectoris; E11.22 Type 2 diabetes mellitus with diabetic chronic kidney disease; J44.9 Chronic obstructive pulmonary disease, unspecified; E11.51 Type 2 diabetes mellitus with diabetic peripheral angiopathy without gangrene; R62.7 Adult failure to thrive; M79.89 Other specified soft tissue disorders; N18.3 Chronic kidney disease, stage 3 (moderate); Z82.49 Family history of ischemic heart disease and other diseases of the circulatory system; Z79.4 Long term (current) use of insulin; Z87.01 Personal history of pneumonia (recurrent); Z79.899 Other long term (current) drug therapy

== ENCOUNTER 2017-12-11 01:38 | Emergency (ER) | payer MEDICARE ==
[~2017-12-11] VITALS: Wt 82.1 kg
[~2017-12-11 01:38] MED LIST changes: +PULMICORT RESP0.5 MG NEB
[2017-12-11 05:56] VITALS: BP 136/66
== END 2017-12-11 06:30 | disposition home or self-care (01) ==
LOC: ED 01:38
DX: S80.11XA Contusion of right lower leg, initial encounter (principal); J44.9 Chronic obstructive pulmonary disease, unspecified; I50.9 Heart failure, unspecified; E11.9 Type 2 diabetes mellitus without complications; Z79.899 Other long term (current) drug therapy; Z79.4 Long term (current) use of insulin; X58.XXXA Exposure to other specified factors, initial encounter; Y93.89 Activity, other specified; Y92.89 Other specified places as the place of occurrence of the external cause; Y99.9 Unspecified external cause status